=== PATIENT | female | born 1955 | race Caucasian/White ===

== ENCOUNTER 2020-10-07 11:52 | Emergency (ER) | payer BC ==
[~2020-10-07] VITALS: Ht 165.1 cm; Wt 65.9 kg
[2020-10-07 12:51] LABS: BASOPHILS % (AUTO) 0.2 % (0-1); EOSINOPHILS % (AUTO) 1.9 % (0-6); MEAN PLATELET VOLUME 9.3 FL (7.4-10.4); MONOCYTES # (AUTO) 0.6 X10'3 (0-0.9)
[2020-10-07 12:52] LABS: EOSINOPHILS # (AUTO) 0.2 X10'3 (0-0.9); HEMATOCRIT 39.8 % (35.0-45.0); HEMOGLOBIN 13.6 g/dl (12.0-16.0); LYMPHOCYTES % (AUTO) 8.2 % (21-51); MEAN CORPUSCULAR HEMOGLOBIN 33.1 PG (27.0-31.0); MEAN CORPUSCULAR HGB CONC 34.1 g/dL (33.0-36.5); MEAN CORPUSCULAR VOLUME 97.1 FL (78-98); NEUTROPHILS # (AUTO) 10.7 X10'3 (1.8-7.7); NEUTROPHILS % (AUTO) 84.7 % (42-75); PLATELET COUNT 130 X10'3 (140-440); WHITE BLOOD COUNT 12.6 X10'3 (4.5-11.0)
[2020-10-07 13:16] LABS: ALANINE AMINOTRANSFERASE 183 U/L (12-78); ALBUMIN 1.6 G/DL (3.4-5.0); ALBUMIN/GLOBULIN RATIO 0.4 (1.1-1.5); ANION GAP 15 (8-16); BILIRUBIN,TOTAL 23.1 MG/DL (0.1-1.0); BLOOD UREA NITROGEN 73 MG/DL (7-18); BUN/CREATININE RATIO 35.1 (6.6-38.0); CHLORIDE 92 MMOL/L (99-107); CREATININE 2.08 MG/DL (0.40-0.90); GLUCOSE 112 MG/DL (70-104); POTASSIUM 4.8 MMOL/L (3.5-5.1); SODIUM 129 MMOL/L (135-145); TOTAL CARBON DIOXIDE 22.2 MMOL/L (24-32); TOTAL PROTEIN 5.5 G/DL (6.4-8.2); eGFR 24 ML/MIN
[2020-10-07 13:17] LABS: ALKALINE PHOSPHATASE 171 IU/L (46-116); ASPARTATE AMINO TRANSFERASE 124 U/L (10-37)
[2020-10-07] MEDS ORDERED: albumin (human) 25% 100 ML IV solution IV ONE ×2 (14:35→16:00)
[2020-10-07] MEDS ORDERED: morphine 2 MG/ML inj. syringe IV ONE (14:40)
[2020-10-07] MEDS ORDERED: LIDOcaine 1% W/epiNEPHrine 1:100,000 20ml vial SQ ONE (14:50)
--- NOTE | 2020-10-07 15:26 | NUR ---
Dr Rabago performing Thoracentesis. Samples obtained, labeled and sent to the lab. Addendum: 10/07/20 at 1537 by [email or web address] Paracentesis
--- NOTE | 2020-10-07 15:41 | NUR ---
Dr Rabago performing Thoracentesis
[2020-10-07] MEDS: piperacillin/tazo 3.375gm/50ml 50 ML IV SCH (16:12)
[2020-10-07] MEDS ORDERED: albumin (Human) 5% 250ml 250 ML IV ONE (16:45)
[2020-10-07] MEDS: midodrine 5mg tablet PO SCH (17:27)
--- NOTE | 2020-10-07 19:16 | NUR ---
Patient resting comfortably, daughter at bedside.
[2020-10-07 19:37] LABS: BFAPPEAR CLEAR; BFCOLOR YELLOW
[2020-10-07 19:40] LABS: BFVOLUME 25 ML
[2020-10-07 19:44] LABS: BF RBC COUNT 45 /CU MM; BF WBC COUNT 67 /CU MM (0-1000); NEUTROPHILS,BODY FLUID 50 %
[2020-10-07 19:45] LABS: LYMPHOCYTES,BODY FLUID 29 %; MONOCYTES,BODY FLUID 21 %
[2020-10-07 19:46] LABS: BF MESOTHELIAL CELLS FEW
[2020-10-07 19:48] LABS: BFAPPEAR CLEAR; BFCOLOR YELLOW
[2020-10-07 19:49] LABS: BF MESOTHELIAL CELLS MODERATE; BF RBC COUNT 39 /CU MM; BF WBC COUNT 58 /CU MM (0-1000); BFVOLUME 6 ML; LYMPHOCYTES,BODY FLUID 15 %; MONOCYTES,BODY FLUID 23 %; NEUTROPHILS,BODY FLUID 62 %
--- NOTE | 2020-10-08 00:03 | NUR ---
[facility] CALLED, STATING STILL AWAITING ROOM ASSIGNMENT. NOT ETA AVAILABLE.
[2020-10-08] MEDS: piperacillin/tazo 3.375gm/50ml 50 ML IV SCH ×2 (00:47→08:22)
[2020-10-08] MEDS ORDERED: HYDROcodone/acetaminophen 5mg/325mg tablet PO ONE (01:20)
--- NOTE | 2020-10-08 05:21 | NUR ---
A BED AT [facility] HAS BEEN OBTAINED, [place] [address] ICU ROOM 12. NUMBER TO CALL REPORT IS [phone]. [facility] BEEN CALLED FOR TRANSPORT.
[2020-10-08] MEDS: midodrine 5mg tablet PO SCH (08:19)
[2020-10-08] MEDS ORDERED: morphine 4 MG/ML inj SYRINge IV ONE (08:35)
[2020-10-08 10:20] VITALS: BP 91/42
== END 2020-10-08 11:59 | disposition short-term general hospital (02) ==
LOC: ER 11:53
DX: K72.90 Hepatic failure, unspecified without coma (principal); J90 Pleural effusion, not elsewhere classified; R18.8 Other ascites; Z20.828 Contact with and (suspected) exposure to other viral communicable diseases
CPT/HCPCS: 32555; 36415; 49083; 71045; 80053; 82140; 83605; 83880; 84484; 85025; 85610; 87040; 87070; 87635; 89051; 93005; 96365; 96366; 96368; 96375; 96376; 99285; C9803; J2270; J2543; P9045; P9047

== ENCOUNTER 2020-12-12 10:25 | Emergency (ER) | payer BC ==
[~2020-12-12] VITALS: Ht 165.1 cm; Wt 53.2 kg
[2020-12-12 11:29] LABS: EOSINOPHILS # (AUTO) 0.1 X10'3 (0-0.9); HEMOGLOBIN 7.9 g/dl (12.0-16.0); WHITE BLOOD COUNT 1.3 X10'3 (4.5-11.0)
[2020-12-12 11:31] LABS: BASOPHILS # (AUTO) 0.1 X10'3 (0-0.2); BASOPHILS % (AUTO) 4.4 % (0-1); EOSINOPHILS % (AUTO) 5.2 % (0-6); HEMATOCRIT 23.8 % (35.0-45.0); LYMPHOCYTES # (AUTO) 0.3 X10'3 (1.1-4.8); MEAN CORPUSCULAR HEMOGLOBIN 28.2 PG (27.0-31.0); MEAN CORPUSCULAR VOLUME 85.2 FL (78-98); MEAN PLATELET VOLUME 8.9 FL (7.4-10.4); MONOCYTES # (AUTO) 0.3 X10'3 (0-0.9); MONOCYTES % (AUTO) 25.5 % (2-12); NEUTROPHILS % (AUTO) 38.9 % (42-75); PLATELET COUNT 166 X10'3 (140-440); RED BLOOD COUNT 2.79 X10'6 (4.20-5.60); RED CELL DISTRIBUTION WIDTH 15.8 % (11.5-14.5)
[2020-12-12 11:39] LABS: NEUTROPHILS # (AUTO) 0.5 X10'3 (1.8-7.7)
[2020-12-12 11:48] LABS: ALANINE AMINOTRANSFERASE 16 U/L (12-78); ALBUMIN 3.5 G/DL (3.4-5.0); ALKALINE PHOSPHATASE 108 IU/L (46-116); ANION GAP 5 (8-16); ASPARTATE AMINO TRANSFERASE 12 U/L (10-37); BILIRUBIN,TOTAL 0.5 MG/DL (0.1-1.0); BLOOD UREA NITROGEN 28 MG/DL (7-18); BUN/CREATININE RATIO 28.9 (6.6-38.0); CALCIUM 9.3 MG/DL (8.5-10.1); CHLORIDE 104 MMOL/L (99-107); CREATININE 0.97 MG/DL (0.40-0.90); GLUCOSE 107 MG/DL (70-104); POTASSIUM 5.1 MMOL/L (3.5-5.1); SODIUM 137 MMOL/L (135-145); TOTAL CARBON DIOXIDE 28.4 MMOL/L (24-32); TOTAL PROTEIN 7.1 G/DL (6.4-8.2); eGFR 58 ML/MIN
[2020-12-12 11:58] LABS: PLATELET ESTIMATE NORMAL; TOTAL CELLS COUNTED 100
[2020-12-12 11:59] LABS: ELLIPTOCYTES 1+; SCHISTOCYTES FEW; STOMATOCYTES 1+; TEAR DROP CELLS FEW
[2020-12-12 12:00] LABS: ANISOCYTOSIS 1+; MICROCYTOSIS FEW
[2020-12-12] MEDS ORDERED: TBO-filgrastim 300 MCG/0.5 ML inj. SQ ONE (12:50)
[2020-12-12] MEDS ORDERED: loratadine 10mg tablet PO ONE (12:51)
[2020-12-12] MEDS ORDERED: diphenhydrAMINE 25mg capsule PO ONE (12:51)
[2020-12-12 13:21] VITALS: BP 125/63
== END 2020-12-12 13:23 | disposition home or self-care (01) ==
LOC: ER 10:25
DX: R53.83 Other fatigue (principal); D70.9 Neutropenia, unspecified; R53.1 Weakness; Z94.4 Liver transplant status; Z98.890 Other specified postprocedural states; Z72.89 Other problems related to lifestyle
CPT/HCPCS: 36415; 80053; 83880; 85007; 85025; 85730; 96372; 99283; J1442; Q0163